=== PATIENT | male | born 1990 | race Caucasian/White ===

== ENCOUNTER 2016-03-26 11:09 | Emergency (ER) | payer SELFPAY ==
[~2016-03-26] VITALS: Ht 190.5 cm; Wt 127.0 kg
--- NOTE | 2016-03-26 11:39 | ED Lower Extremity ---
General Chief Complaint: Lower Extremity Stated Complaint: RIGHT KNEE PAIN Nursing Triage Note: PT REPORTS R KNEE PAIN. HE REPORTS KNEE "POPPED OUT OF PLACE" WHEN HE WAS GETTING UP FROM FLOOR AT HOME. Nursing Sepsis Screen: No Definite Risk Source: patient Exam Limitations: no limitations History of Present Illness Time seen by provider: 11:36 Initial Comments To ER with right knee pain. He states that he was getting up from the floor at home today when the right knee "popped out of place". His girlfriend had pull on it to get it back in. Onset: just prior to arrival Severity: moderate Pain/Injury Location: right knee Method of Injury: unknown Modifying Factors: Worse With Movement Allergies and Home Medications Allergies Coded Allergies: No Known Drug Allergies (Unverified , 03/26/16) Constitutional: see HPI EENTM: see HPI Respiratory: no symptoms reported Cardiovascular: no symptoms reported Genitourinary: no symptoms reported Musculoskeletal: see HPI Skin: no symptoms reported Psychiatric/Neurological: No Symptoms Reported Past Qqmnuga-Jtccej-Kvzzsg Hx Patient Social History Recent Foreign Travel: No Contact w/Someone Who Travel: No Recent Infectious Disease Expo: No Recent Hopitalizations: No Seasonal Allergies Seasonal Allergies: No Surgeries HX Surgeries: No Physical Exam Vital Signs Vital Sign - Last 12Hours 03/26/16 11:21 Temp 97.9 Pulse 85 Resp 16 B/P 138/89 Pulse Ox 97 O2 Delivery Room Air Capillary Refill : Less Than 3 Seconds General Appearance: WD/WN no apparent distress HEENT: PERRL/EOMI normal ENT inspection Neck: non-tender full range of motion Respiratory: no respiratory distress no accessory muscle use Gastrointestinal: non tender soft Hips: bilateral hip non-tender, bilateral hip normal inspection, bilateral hip normal range of motion Legs: bilateral leg non-tender, bilateral leg normal inspection, bilateral leg normal range of motion Knees: right knee pain, right knee soft tissue tenderness, right knee other ( no erythema, no palpable effusoin, no deformity or ecchymosis. ) Ankles: bilateral ankle non-tender, bilateral ankle normal inspection, bilateral ankle normal range of motion Feet: bilateral foot non-tender, bilateral foot normal inspection, bilateral foot normal range of motion Neurologic/Tendon: normal sensation normal motor functions Neurologic/Psychiatric: alert normal mood/affect oriented x 3 Skin: normal color warm/dry Comments There is no patellar dislocation at this time and there is no gross instability of the knee. Progress/Results/Core Measures Results/Orders My Orders Orders-MARIBEL HERNANDEZ APRN Knee, Right, 3 Views (03/26/16 11:31) Immobilizer Knee St 24 In (03/26/16 11:31) Vital Signs/I&O Vital Sign - Last 12Hours 03/26/16 11:21 Temp 97.9 Pulse 85 Resp 16 B/P 138/89 Pulse Ox 97 O2 Delivery Room Air Blood Pressure Mean: 105 Departure Impression Impression: Primary Impression: Knee pain Qualified Code: M25.561 - Pain in right knee Disposition: ADMITTED INPATIENT Condition: Improved Departure-Patient Inst. Decision time for Depature: 12:03 Referrals: NO,LOCAL PHYSICIAN (PCP) Primary Care Physician MERE EM MD,BREA SMITH,MARTELL CLEMONS,RISA SINGH,TROY ELENA,NOLVIA RAMON,KARUNA CRUZ,IRENE Forrest MD Patient Instructions: Knee Pain Add. Discharge Instructions: 1. Wear the knee immobilizer for the next week when you're up moving around 2. Call the orthopedic surgeons for follow-up 3. Return to ER for any concerns All discharge instructions reviewed with patient and/or family. Voiced understanding. Scripts Naproxen (Naprosyn)500 Mg [id number] Mg PO BID #14 TAB Prov:MARIBEL HERNANDEZ APRN 03/26/16 Work/School Note: Work Release Form Date Seen in the Emergency Department: Mar 26, 2016 Return to Work: Mar 27, 2016 Other Restrictions Listed Below: to wear knee immobilizer for one week MARIBEL HERNANDEZ APRN Mar 26, 2016 11:39
--- NOTE | 2016-03-26 12:02 | Diagnostic Imaging Report ---
INDICATION: Right knee pain. AP, oblique, and lateral views of the right knee are obtained. FINDINGS: No fracture or acute bony abnormality is seen. There is no joint effusion. There is no significant degenerative change. IMPRESSION: Negative right knee. Dictated by: Dictated on workstation # [id number]
[2016-03-26] MEDS ORDERED: NAPR500T PO (12:05)
[2016-03-26] MEDS ORDERED: NAPROXEN 250 MG (NAPROSYN) TABLET PO ONE (12:15)
[2016-03-26 12:22] VITALS: BP 138/89
== END 2016-03-26 11:20 | disposition home or self-care (01) ==
LOC: EDUNIT# 11:09 → ER 11:14
DX: M25.561 Pain in right knee (principal)
CPT/HCPCS: 73562; 99283

== ENCOUNTER 2020-06-09 19:27 | Emergency (ER) | payer SELFPAY ==
[~2020-06-09] VITALS: Ht 190.5 cm; Wt 185.9 kg
[~2020-06-09 19:27] MED LIST: NAPR-1071 PO
[2020-06-09 19:48] VITALS: BP 177/101
[2020-06-09] MEDS ORDERED: QUEtiapine 25 MG (SEROquel) TAB IMMEDIATE RELEASE PO SCH (20:00)
--- NOTE | 2020-06-09 20:00 | ED Psychosocial ---
General Chief Complaint: Psych/Social Disorder Stated Complaint: PSYCH EVAL Source: patient Exam Limitations: no limitations History of Present Illness Date Seen by Provider: Jun 09, 2020 Time Seen by Provider: 19:45 Initial Comments Patient is a 29-year-old male who presents to the emergency department today with a chief complaint of desiring psychosocial evaluation for what he states are "manic episodes" and depressive episodes. Patient has a history from being a child of what he states was ADHD and ADD and severe depression. He states that when he became grown he just went off all of his medications because he did not think he needed them. Patient states that his manic episodes sometimes consist of paranoid episodes where he thinks people are following him and he becomes what he describes as hypervigilant or hyper attentive. He at no point has had any issues of self-harm or suicidal thoughts. He has had thoughts of hurting people when he feels like he is being watched or followed. He states that during his manic episodes he will throw things around but not necessarily break things although he states he has broken phones in the past. He states that he used methamphetamine about 3 days ago when he was paranoid so that he can stay up and be vigilant. He does occasionally smoke marijuana. He also vapes. No alcohol use. Patient denies any recent illnesses such as fevers, chills, congestion he has had a small smoker's cough. He denies abdominal pain, diarrhea, urinary issues. No chest pain or shortness of breath. Patient states that he has called [facility] health services and has scheduled an appointment for the or 01 July. He states that he could not get in any sooner. He comes in this evening to hopefully try and get a sooner appointment. All other review of systems reviewed and negative except as stated. Severity: moderate Associated Symptoms: anxiety Allergies and Home Medications Allergies Coded Allergies: No Known Drug Allergies (Unverified , 03/26/16) Home Medications Quetiapine Fumarate 100 Mg Tablet, 100 MG PO HS Prescribed by: CLARISSA GARCIA on 06/09/202012 Patient Home Medication List Home Medication List Reviewed: Yes Review of Systems Constitutional: see HPI EENTM: no symptoms reported Respiratory: no symptoms reported Cardiovascular: no symptoms reported Gastrointestinal: no symptoms reported Genitourinary: no symptoms reported Musculoskeletal: no symptoms reported Skin: no symptoms reported Psychiatric/Neurological: Anxiety, Depressed, Emotional Problems, Other (Paranoia and "bee"; substance abuse) Past Poqhevd-Igitvv-Rvseog Hx Patient Social History Recent Hopitalizations: No Seasonal Allergies Seasonal Allergies: No Physical Exam Vital Signs - First Documented 06/09/20 19:48 Pulse 119 Resp 20 B/P (MAP) 177/101 (126) O2 Delivery Room Air Capillary Refill : Height, Weight, BMI Height: 6'3" Weight: 280lbs. oz. [id number]; BMI Method:Stated General Appearance: WD/WN, no apparent distress HEENT: PERRL/EOMI, normal ENT inspection Neck: full range of motion Respiratory: lungs clear, normal breath sounds, no respiratory distress, no accessory muscle use Cardiovascular: regular rate, rhythm, tachycardia Extremities: normal range of motion, normal inspection Neurologic/Psychiatric: alert, normal mood/affect, oriented x 3 Appearance/Memory: appropriate appearance, appropriate insight, no memory impairment, denies illness Behavior/Eye Contact: cooperative, good eye contact, normal speech Thoughts/Hallucinations: normal thought pattern, no apparent hallucination Skin: normal color, warm/dry Progress/Results/Core Measures Results/Orders My Orders Orders - CLARISSA GARCIA MD Quetiapine Immediate Release (Seroquel I (06/09/20 20:00) Vital Signs/I&O 06/09/20 19:48 Pulse 119 Resp 20 B/P (MAP) 177/101 (126) O2 Delivery Room Air Progress Progress Note : Time: 19:57 Progress Note Patient seen and examined, 29-year-old male who presents with a chief complaint of bee and depressive episodes. Patient evaluation today includes a physical exam and history. Patient denies any thoughts of self-harm or suicidal ideation or homicidal ideation. He is concerned because he states he wants his mind to be better to be able to take care of his 1-year-old child. He is tearful when speaking about his child. Patient has good insight and seems motivated to be well. [facility] health appointment scheduled for the or 01 of July. At this point I do not see any indications for psychiatric clearance labs for mental health evaluation. Patient will likely not get any sooner appointments as a result of his visit to the emergency room this evening. I am going to start him on some Seroquel at a low dose. 50 mg tonight and then 100 mg every night thereafter until his appointment. He has been on these medications before. He has also been on Wellbutrin in the past. He does not have a primary care physician and I will encourage him to obtain one. He has no clinical or objective findings for which urgent or emergent laboratory testing or imaging would be beneficial. All of this is discussed with the patient. I believe he is not a threat to himself or others and is stable to be discharged. He verbalizes understanding of the discharge plan and is agreeable. All questions were sought and answered. Patient will be discharged home on the Seroquel and to follow-up with [facility]. Departure Impression Primary Impression: Depression Qualified Codes: F32.9 - Major depressive disorder, single episode, uns pecified Disposition: 01 HOME, SELF-CARE Condition: Stable Departure-Patient Inst. Decision time for Depature: 20:11 Referrals: [facility] [place] ANABELLA,LOCAL PHYSICIAN (PCP) Primary Care Physician Patient Instructions: Depression, Adult ED Add. Discharge Instructions: Start taking the Seroquel, 100mg, every night at bedtime after tonight. If you have further manic or dangerous thoughts, please come back to the Emergency Room for further evaluation and possible placement in a mental health facillity. Avoid any illegal drugs such as meth, because it will further worsen your manic episodes. Try and get good sleep and rest. Keep your scheduled appointment with [facility], the first week of June. Scripts Quetiapine Fumarate (Seroquel) 100 Mg Tablet 100 MG PO HS, #30 TAB Prov: CLARISSA GARCIA MD 06/09/20 CLARISSA GARCIA MD Jun 09, 2020 20:00
[2020-06-09] MEDS ORDERED: QUET100T PO (20:13)
== END 2020-06-09 20:25 | disposition home or self-care (01) ==
LOC: EDUNIT# 19:27 → ER 19:29
DX: F32.9 Major depressive disorder, single episode, unspecified (principal)
CPT/HCPCS: 99283